=== PATIENT | female | born 1950 | race African-American/Black ===

== ENCOUNTER 2016-06-21 18:16 | Emergency (ER) | payer OTHER ==
[~2016-06-21] VITALS: Ht 154.9 cm; Wt 80.7 kg
--- NOTE | 2016-06-21 18:53 | ED.ADGEN ---
Past Medical History Past Medical History: A-Fib, Cancer, CVA, High Cholesterol, Hypotension Additional Past Medical Histor: STOMACH CA, R SIDE DEFICITS R/T CVA Past Surgical History: Cholecystectomy, Additional Past Surgical Histo: PORT L CHEST, FEEDING TUBE, GASTRIC BYPASS, POLYPS COLON/UTERUS Alcohol Use: Sober Drug Use: None Adult General Chief Complaint Chief Complaint: HIP PAIN HPI HPI Patient is a 65 year old [woman, history of CVA with residual right-sided deficits, "stomach" cancer, with active chemotherapy in place with infusion pump , who presents the emergency department with a complaint of right hip pain. Patient states that she got up around 4:30 in the afternoon, stood up without any difficulty, when she sat back down and began to scoot back on her bed using her leg she began experiencing pain that shot from her right hip buttock area into her right leg. She states that she has no pain with rest, and no pain when she extends and flexes her leg at the knee. Denies any injuries, denies any similar symptoms previously, denies any weakness numbness or tingling, any nausea or vomiting, any chest pain or shortness of breath. States she did take her OxyContin at home and is currently having no pain at this time. Review of Systems Review of Systems Constitutional: Denies fever or chills. [] Eyes: Denies change in visual acuity. [] HENT: Denies nasal congestion or sore throat. [] Respiratory: Denies cough or shortness of breath. [] Cardiovascular: Denies chest pain or edema. [] GI: Denies abdominal pain, nausea, vomiting, bloody stools or diarrhea. [] : Denies dysuria. [] Musculoskeletal: Denies back pain, complaining of pain in the right buttock/ hip area. Integument: Denies rash. [] Neurologic: Denies headache, focal weakness or sensory changes. [] Endocrine: Denies polyuria or polydipsia. [] Lymphatic: Denies swollen glands. [] Psychiatric: Denies depression or anxiety. [] Allergies Allergies Allergies Coded Allergies Type Severity Reaction Last Updated Verified No Known Drug Allergies 06/21/16 No Physical Exam Physical Exam Constitutional: Well developed, well nourished, no acute distress, non-toxic appearance. [] HENT: Normocephalic, atraumatic, bilateral external ears normal, oropharynx moist, no oral exudates, nose normal. [] Eyes: PERRLA, EOMI, conjunctiva normal, no discharge. [] Neck: Normal range of motion, no tenderness, supple, no stridor. [] Cardiovascular:Heart rate regular rhythm, no murmur, S1, S2, rubs or gallops. [] Lungs & Thorax: Bilateral breath sounds clear to auscultation, no wheezing, rhonchi, rales. Patient with left-sided port in place. Site is clean dry and intact.] Abdomen: Bowel sounds normal, soft, no tenderness, no masses, no pulsatile masses. [] Skin: Warm, dry, no erythema, no rash. [] Back: No midline tenderness, step-offs or deformities, no CVA tenderness. [] Extremities: Patient with tenderness all patient in the performance region, no specific spasm or tissue tension identified, symptoms are reproducible with palpation in this region, patient has no hip or femoral tenderness, patient with painless range of motion at the hip and knee, pain is induced with straight leg raise test. No cyanosis, no clubbing, ROM intact, no edema. [] Neurologic: Alert and oriented X 3, normal motor function, normal sensory function, no focal deficits noted. [] Psychologic: Affect normal, judgement normal, mood normal. [] Current Patient Data Vital Signs Vital Signs Date Time Temp Pulse Resp B/P Pulse Ox O2 Delivery O2 Flow Rate FiO2 06/21/16 20:04 59 110/55 99 Room Air 06/21/16 19:34 17 06/21/16 18:16 98.2 98.2 EKG EKG ECG: Rhythm strip: Sinus rhythm, heart rate 88 bpm, no ectopy, as interpreted by me. [] Radiology/Procedures Radiology/Procedures Lumbar x-ray: Three-view: Evidence of significant degenerative disease, no evidence of acute fracture or subluxation. As interpreted by me. Hip x-ray: Pelvis into view: Right: Evidence of degenerative disease, no evidence of acute fracture subluxation. As interpreted by me. [] Course & Med Decision Making Course & Med Decision Making Pertinent Labs and Imaging studies reviewed. (See chart for details) Patient's examination is consistent with sciatica. On further evaluation she states that actually she has been using a new walker today, and was much more active than usual, which may have triggered her symptoms. At this time she remains asymptomatic in the emergency department, with degenerative disease on x -rays identified. I did discuss the signs the patient, patient was ambulated in the ED using assistance with a walker, she did ambulate without any difficulty, and states that she is rated discharged home. We'll follow up with a primary care provider for additional evaluation, will return to the ED for concerning symptoms as stated. Patient's family is in attendance at bedside, they are agreeable with this plan. Patient to continue home medications, and return to the ED for any concerning symptoms as discussed. Dragon Disclaimer Dragon Disclaimer This electronic medical record was generated, in whole or in part, using a voice recognition dictation system. Departure Impression: Primary Impression: Acute right-sided low back pain with right-sided sciatica Disposition: 01 HOME, SELF-CARE Condition: IMPROVED SONU MAN DO Jun 21, 2016 18:52
[2016-06-21 20:04] VITALS: BP 110/55
--- NOTE | 2016-06-22 08:29 | RAD ---
Lumbar spine, 3 views, 06/21/2016: History: Chronic back and hip pain The bony structures appear demineralized. There is mild loss of height of the L5 vertebral body of indeterminate age. There is bony bridging anteriorly at T12-L1. Mild superior endplate deformities at T12 and L1 are probably old. The lumbar disc spaces are fairly well preserved. There are mild scattered marginal spurs. There are mild degenerative changes involving the facet joints in the lower lumbar spine. An inferior vena cava filter is in place at the L2-3 level. There is a moderate amount of stool in the colon. IMPRESSION: 1. Mild loss of height of the L5 vertebral body of indeterminate age. 2. Mild scattered degenerative changes.
--- NOTE | 2016-06-22 08:31 | RAD ---
Pelvis with right hip, 3 views, 06/21/2016: History: Back and hip pain No fracture or destructive bony lesion is seen. The hip joint spaces are fairly well-maintained with only minimal marginal spurring. The periarticular soft tissues are unremarkable. There is a moderate amount of stool in the colon. IMPRESSION: No acute pelvic or right hip abnormality is detected.
== END 2016-06-21 20:34 | disposition home or self-care (01) ==
LOC: ER 18:16
DX: M54.41 Lumbago with sciatica, right side (principal); I48.91 Unspecified atrial fibrillation; Z86.73 Personal history of transient ischemic attack (TIA), and cerebral infarction without residual deficits; E78.00 Pure hypercholesterolemia, unspecified; Z90.49 Acquired absence of other specified parts of digestive tract; Z98.84 Bariatric surgery status
CPT/HCPCS: 72100; 73502; 99284